=== PATIENT | female | born 1985 | race African-American/Black ===

== ENCOUNTER 2020-05-26 13:33 | Inpatient (IN) | payer OTHER ==
[~2020-05-26] VITALS: Ht 172.7 cm; Wt 115.7 kg
[2020-05-26] VITALS (27 sets, daily range): BP systolic 132–191; BP diastolic 70–97
[2020-05-26] MEDS ORDERED: LR 1,000 ML IV SCH ×2 (13:35→16:30)
[2020-05-26] MEDS ORDERED: LACTATED RINGER'S 1000 ML IV STA (13:35)
[2020-05-26] MEDS ORDERED: LABETALOL 100MG/20ML VIAL IV STA ×3 (13:41→17:53)
[2020-05-26] MEDS ORDERED: NIFEdipine 10 MG CAP PO ONE (13:45)
[2020-05-26] MEDS ORDERED: BICITRA 30ML SOLN UDC PO ONE (13:45)
[2020-05-26] MEDS ORDERED: ceFAZolin SOD 2 GM in IV 1 EA IV ONE (13:45)
[2020-05-26 14:08] LABS: HEMATOCRIT 35.4 % (36.0-47.0); HEMOGLOBIN 10.6 g/dl (12.0-15.5); MEAN CORPUSCULAR HEMOGLOBIN 22.5 pg (27.0-33.0); MEAN CORPUSCULAR HGB CONC 29.9 g/dl (32.0-36.5); MEAN CORPUSCULAR VOLUME 75.2 fl (80.0-96.0); PLATELET COUNT, AUTOMATED 391 10^3/uL (150-450); RED BLOOD COUNT 4.71 10^6/uL (4.00-5.40); WHITE BLOOD COUNT 10.2 10^3/uL (4.0-10.0)
[2020-05-26] MEDS ORDERED: ONDANSETRON 4MG/2ML VIAL IV PRN ×3 (14:12→16:30)
[2020-05-26] MEDS ORDERED: METOCLOPRAMIDE INJ 10MG/2ML VIAL (J2765 PER 1) IV PRN ×2 (14:12→16:30)
[2020-05-26] MEDS ORDERED: NALBUPHINE HCL 10 MG/ML AMP (J2300) IV PRN (14:12)
[2020-05-26] MEDS ORDERED: NALOXONE INJ 0.4MG/1ML VIAL (J2310 PER 1MG) IV PRN ×2 (14:12)
[2020-05-26] MEDS ORDERED: diphenhydrAMINE 50MG/ML VIAL (J1200) IV PRN (14:12)
[2020-05-26] MEDS ORDERED: PHENYLephrine 500MCG 5ML (100MCG/ML) SYRINGE As Ordered ONE (14:31)
[2020-05-26] MEDS ORDERED: MORPHINE PRES-FREE INJ 10 MG/10 ML VIAL (J2274) As Ordered ONE (14:31)
[2020-05-26] MEDS ORDERED: OXYTOCIN 30 UNITS IN 0.9% NaCl 500ML IV BAG (J2590) As Ordered ONE (14:31)
[2020-05-26] MEDS ORDERED: ONDANSETRON 4MG/2ML VIAL As Ordered ONE ×2 (14:31→16:28)
[2020-05-26] MEDS ORDERED: ePHEDrine SULFATE 25 MG/5 ML(5MG/ML) SYRINGE As Ordered ONE (14:31)
[2020-05-26] MEDS ORDERED: KETOROLAC 60MG 2ML VIAL As Ordered ONE (14:32)
[2020-05-26 14:56] LABS: CORD GAS ABE V -5.9; CORD GAS HCO3 V 22.1 MEQ/L; CORD GAS O2 SAT V 69.9 %; CORD GAS PCO2 V 52.3 mmHg; CORD GAS PH V 7.244 UNITS; CORD GAS PO2 V 31.9 mmHg; CORD GAS TCO2 V 23.7 MEQ/L
[2020-05-26 14:57] LABS: CORD GAS ABE A -5.2; CORD GAS HCO3 A 27.7 MEQ/L; CORD GAS O2 SAT A 26.3 %; CORD GAS PCO2 A 90.8 mmHg; CORD GAS PH A 7.102 UNITS; CORD GAS PO2 A 17.9 mmHg; CORD GAS SBC A 18.4 MEQ/L; CORD GAS TCO2 A 30.5 MEQ/L
[2020-05-26] MEDS ORDERED: OXYTOCIN INJ 10 UNITS/ML VIAL (J2590) As Ordered ONE (15:04)
--- NOTE | 2020-05-26 15:05 | HPEPDOC ---
Obstetrical History & Physical General Date of Admission May 26, 2020 at 13:35 Primary Care Physician: SATYA TALAVERA CNM History of Present Illness Micaela is a 34 y/o at 38.1 weeks, ROCKY 06/08/20 per 1st trimester ultrasound in [place], [place] at [facility], awaiting records at this time. LMP 09/02/19. She moved here from [place] 3 weeks ago. Has not had care since 02/2020 She presented to L&D via ambulance with a C/O constant abdominal pain that stretches to her back, cramping, and rating it 10/10 on adult pain scale. She has had abdominal pain with contractions for the last 3 days but her pain started to get worse suddenly this afternoon when she was doing laundry. Reports SOB with onset of pain. Denies LOF, vaginal bleeding. Reports active movement today. Reports current headache. Denies chest pain, nausea/vomiting, visual changes. History significant for chronic hypertension with superimposed preeclampsia and gestational diabetes A2 this . Reports taking Labetalol 200mg BID, last taken this morning and Metformin 500mg PO HS, taken last night. Last meal was last night, patient unsure of last fluid intake. Chief Complaint: Contractions, term, Other (Severe abdominal pain, hx. of C/Section x8) Information Provided By: Patient Age: 34 : 9 Term: 8 Pre-term: 0 Abortions: 0 Livin Care Care: Other (Last visit 02/21/20 per records received from [facility] ([facility] in [place]) Dating Final EDC: Jun 08, 2020 Final EDC by: 1st trimester (US) (awaiting records from [place]) LMP: Sep 02, 2019 1st Trimester Date: October 11, 2019 Weeks + Days: 5.5 EGA at Admission: 38.1 Antepartum Course Diagnos(e)s Pre-gestational Type 2 Diabetes, taking Metformin Chronic Hypertension with Superimposed Preeclampsia, diagnosed at 20wks this , taking Labetalol 200mg BID, last taken this AM. Height (inches): 68 Past Medical History Past Obstetrical History #1: Past Obstetrical History: Primgravida Date of Delivery: Jul 20, 2007 Type of Delivery: Spontaneous Vaginal Del. Sex of Infant: Female (6lb 3.4oz) Past Obstetrical History #2: Past Obstetrical History: Multigravida Date of Delivery: Jul 17, 2008 Type of Delivery: Spontaneous Vaginal Del. Sex of : Female (7lb8.96oz) Past Obstetrical History #3: Past Obstetrical History: Multigravida Date of Delivery: Aug 13, 2009 Type of Delivery: Ceserean section Sex of Infant: Male (6lb 12.96oz.) Complications: Yes (Preeclampsia) Past Obstetrical History #4: Past Obstetrical History: Multigravida Date of Delivery: Dec 07, 2010 Type of Delivery: Ceserean section Sex of : Female (9lbs) Past Obstetrical History #5: Past Obstetrical History: Multigravida Date of Delivery: Jun 05, 2013 Type of Delivery: Ceserean section Sex of : Male (8lb 4.96oz.) Complications: Yes (Preeclampsia; GDMA2) Past Obstetrical History #6: Past Obstetrical History: Multigravida Date of Delivery: Mar 19, 2015 Type of Delivery: Ceserean section Sex of : Male (6lb 13oz.) Complications: Yes (Preeclampsia) Past Obstetrical History #7: Past Obstetrical History: Multigravida Date of Delivery: Aug 27, 2017 Type of Delivery: Ceserean section Sex of Infant: Male (36.5wks) Complications: Yes (Chronic HTN with Superimposed Preeclampsia) Past Obstetrical History #8: Past Obstetrical History: Multigravida Date of Delivery: May 03, 2019 Type of Delivery: Ceserean section Sex of Infant: Female (8lb 13oz.) Complications: Yes (Chronic HTN with Superimposed Preeclampsia with severe features) 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 (Last PAP 11/14/19 normal, HPV negative) Past Medical History Medical History Chronic Hypertension Iron Deficiency Anemia Pregestational diabetes Surgical History: section (x6, 2009, 2010, 2013, 2014, 2017, 2018) Family History Significant Family History: Diabetes, Hypertension Social History Marital Status: Single Family situation: Spouse/partner home (Partner's Name: Joel Burkett) Psychosocial History: No pertinent psych hx * Smoker: non-smoker Alcohol: Denies Drugs: denies Imunizations Tdap status: current (01/13/2015) Allergies Coded Allergies: No Known Drug Allergies (Verified Allergy, Unknown, 05/26/20) Medications Scheduled Aspirin (Aspirin) 81 Mg Tab.chew, 81 MG PO DAILY for pain Labetalol HCl (Labetalol HCl) 200 Mg Tablet, 200 MG PO BID Magnesium Oxide (Magnesium) 400 Mg Capsule, 400 MG PO DAILY for constipation Metformin HCl (Metformin HCl) 500 Mg Tablet, 500 MG PO DAILY No.137/Iron/Folic Acd ( Vitamin Tablet) 1 Each Tablet, 1 TAB PO DAILY Physical Examination Physical Examination GENERAL: Alert and oriented times three. ABDOMEN: Gravid and very tender to touch. FETUS: Is vertex (VTX) by sterile vaginal examination (SVE), fetus is transverse oblique by bedside U/S. LUNGS: Clear to auscultation (CTA) bilaterally. EXTREMITIES: Mild non pitting edema bilaterally. No clonus. Deep tendon reflexes (DTRs) + 1. BEDSIDE ULTRASOUND: Oblique transverse lie with head in right lower maternal quadrant.Placenta posterior. Vital Signs/I&O Vital Signs Date Time Temp Pulse Resp B/P (MAP) Pulse Ox O2 Delivery O2 Flow Rate FiO2 05/26/20 13:49 92 191/97 Pertinent Laboratoy Data Blood Type: A+ RBC Antibody Screen: Negative HIV: Negative Hepatitis B: Negative Hepatitis C: Negative Rapid Plasma Reagin: Nonreactive Rubella: Immune Varicella: Immune Chlamydia/Gonorrhea: Negative Diag/Inter Therapy 02/04/20 HgA1C 7.2% 12/01/19 [id number] Negative 12/01/2019 First Screen, nuchal translucency 0.99MoM, negative screening Panel done on 02/06/2020: Hgb Electropheresis AA, SMA carrier screen negaive, alpha thalassemia carrier sceen negative, raj-A negative, CMP creatnine 0.49, AST 10, ALT7 Other Ultrasounds 01/25/20 - Anatomy at 20wks Normal, upper extremities and RVOT not well visualized 02/15/20 - Anatomy at 25.4wks, normal except limited views of heart and spine 03/03/20 - Echo, Normal findings Steroid Therapy Steroid Therapy: No Vaginal Examination Dilation: 1cm Effacement: 80% Station: -3 Cervical Consistency: Soft Cervical Position: Posterior Presentation: Transverse presentation (Oblique transverse lie ) Assessment Heart Rate (FHR): 160 Variability: Moderate Accelerations: None Decelerations: Variable Tocometer Contractions: Yes Frequency: regular, other (3-6 min.) Duration: greater than 60 seconds Strength: palpated as mild/moderate Multi-drug resistant Organism: No history of MDRO Assessment/Plan Assessment IUP at 38.1 weeks Grand multiparity History of C/Section x6 Category 2 FHT Chronic Hypertension with superimposed preeclampsia with severe features Pre-gestational Type 2 Diabetes, taking Metformin Advanced Maternal Age Sever abdominal pain, possible placental abruption versus uterine rupture Plan Per consultation with Dr. Singh. Admit and orient to Labor and Delivery. Diet: NPO. Group B Streptococcus (GBS) unknown. Labs and intravenous (IV) per unit protocol. Preeclampsia Profile Type and Cross 2 units for high risk Hemorrhage Nifedipine 10mg PO x1 STAT Labetalol 20mg IVP x1 STAT Counseled on Section. Lactated Ringers (LR): Bolus 1000mL Anesthesia and neonatology notified. Ancef 2 grams ordered via IV now. Prep for STAT Repeat Section. SATYA TALAVERA CNM May 26, 2020 14:15
[2020-05-26 15:16] LABS: ALT/SGPT 20 U/L (12-78); BILIRUBIN,TOTAL 0.3 MG/DL (0.2-1.0); CREATININE FOR GFR 0.54 MG/DL (0.55-1.30); GLOMERULAR FILTRATION RATE > 60.0 (>60); LDH LACTATE DEHYDROGENASE 227 U/L (84-246); URIC ACID 4.6 MG/DL (2.6-6.0)
[2020-05-26] MEDS: LR 1,000 ML IV SCH ×2 (15:48→23:48)
[2020-05-26] MEDS ORDERED: OXYTOCIN DRIP 30 UNITS in IV 1 EA IV SCH (15:48)
[2020-05-26] MEDS ORDERED: RHOGAM 300 MCG (1500 IU) INJ (J2790) IM SCH (16:00)
[2020-05-26] MEDS ORDERED: ANUSOL HC CREAM 30GM TOP PRN (16:00)
[2020-05-26] MEDS ORDERED: MOM 30ML SUSPENSION UDC PO PRN (16:00)
[2020-05-26] MEDS ORDERED: DOCUSATE SODIUM 100MG CAPSULE PO PRN (16:00)
[2020-05-26] MEDS ORDERED: MEASLES,MUMPS,RUBELLA VACCINE INJ (MMR-II) (90707) SC SCH (16:00)
[2020-05-26] MEDS ORDERED: MAGNESIUM *L&D* 4GM/100ML BAG (40MG/ML) As Ordered ONE (16:12)
[2020-05-26] MEDS ORDERED: MAGNESIUM *L&D* 4GM/100ML BAG (40MG/ML) IV ONE (16:15)
--- NOTE | 2020-05-26 16:28 | RO ---
OPERATIVE NOTE DATE OF OPERATION: 05/26/2020 INDICATIONS FOR PROCEDURE: Mariella is a 34-year-old female 9, para 8, with a history of six prior sections, who presented at 38 and 1/7 weeks gestation with severe abdominal pain x2 days. Upon evaluation, she was found to be in early labor with significant abdominal tenderness and rigidity. At this point, the decision was made to proceed with delivery via a section. PREOPERATIVE DIAGNOSES: 1. Intrauterine at 38 and 1/7 weeks gestation with a history of six prior sections. 2. Acute abdominal and pelvic pain; cannot rule out uterine abruption versus placental abruption. 3. Chronic hypertension; cannot rule out superimposed preeclampsia. 4. Type 2 diabetes. POSTOPERATIVE DIAGNOSES: 1. Intrauterine at 38 and 1/7 weeks gestation with a history of six prior sections. 2. Acute abdominal and pelvic pain; cannot rule out uterine abruptions versus placental abruption. 3. Chronic hypertension; cannot rule out superimposed preeclampsia. 4. Type 2 diabetes. 5. Complete uterine rupture with the in the abdominal cavity in breech presentation. 6. Dense omental and pelvic adhesions. PROCEDURES: 1. Repeat section. 2. Revision of old scar. 3. Delivery via breech extraction. 4. Extensive lysis of adhesions. 5. Bilateral salpingectomy. ANESTHESIA: Spinal. SURGEON: Messi Singh D.O. MEDICAL OFFICER PSYCHIATRY: Hemalatha Ledesma CNM COMPLICATIONS: None. ESTIMATED BLOOD LOSS: 700 mL. FINDINGS: Complete uterine rupture with a male infant in breech position in the abdominal cavity with clear amniotic fluid noted. 5 and 9. weight 9 pounds 8 ounces. Placenta removed manually. Normal appearing tube and ovaries. Cinda omental and pelvic adhesion. DESCRIPTION OF PROCEDURE: After obtaining informed consent, the patient was taken to the operating room where spinal anesthetic was found to be adequate. She was then prepped and draped in the usual sterile fashion in the supine position. At this point, an elliptical incision was made. With the help of Hemalatha Ledesma, the incision was carried down to the fascia. The fascia was incised in a midline fashion and carried through laterally. Superior aspect of the fascia was then grasped with the Mode clamp, tented off, and dissected off the rectus muscle sharply. Using a series of blunt and sharp dissection, the inferior aspect was dissected in a similar fashion. At this point, the abdominal cavity was entered. Upon entering the abdominal cavity clear amniotic fluid was noted with the infant found to be in the abdominal cavity essentially outside the uterus. We then delivered the via breech extraction. The nose and mouth was bulb suctioned. Cord clamped and cut. The infant was then handed over to the waiting sweep press operator. Cord blood and cord gas were sent. The placenta was then removed. Attention was turned to the uterus where the lower uterine segment was essentially nonexistent. At this point with careful closing, we were able to close the uterus in two separate layers of 0-Vicryl suture. The patient was counseled extensively prior and during the surgery given the nature of her uterine rupture and the fact that this was the seventh section. Both her and her partner agreed to proceed with a tubal ligation. At this point, both tubes were identified. Two large Kellys' were placed. The tubes were removed entirely and the mesosalpinx was then closed using 3-0 Chromic suture. The opposite side was done in a similar fashion. Pelvis copiously irrigated with normal saline and suctioned out. Attention turned to the omental and pelvic adhesions, which were taken down using a series of sharp and blunt dissection with the Bovee. After removing the adhesions, the peritoneum was closed in a running fashion using 2-0 Vicryl. The fascia was closed in without separate segments of 0-Vicryl sutures. All superficial bleeders were coagulated and the skin was reapproximated in a subcuticular fashion using 3-0 Vicryl and a Jos. Steri-Strips placed. The patient tolerated the procedure well. She was then transferred to the recovery room in stable condition. JANIA
[2020-05-26] MEDS ORDERED: dexameTHASONE 4 MG/ML 1ML VIAL (J1100 PER 1MG) IV PRN (16:30)
[2020-05-26] MEDS ORDERED: PERCOCET 5MG/325MG TAB PO PRN (16:30)
[2020-05-26] MEDS ORDERED: MAGNESIUM SULFATE 4% INJ 20GM/500ML (40MG/ML) As Ordered ONE (16:37)
[2020-05-26] MEDS: MAG Sulf (OBGYN) 20GM/500ML 20,000 MG in IV 1 EA IV SCH (16:41)
[2020-05-26] MEDS ORDERED: LABE200T32 PO (16:44)
[2020-05-26] MEDS ORDERED: MAGN400C2 PO (16:44)
[2020-05-26] MEDS ORDERED: ASPI81CH33 PO (16:44)
[2020-05-26] MEDS ORDERED: METF500T13 PO (16:46)
[2020-05-26] MEDS ORDERED: PRENTAB9 PO (16:47)
[2020-05-26] MEDS ORDERED: fentaNYL 100 MCG/2 ML INJECTION (J3010) As Ordered ONE (16:59)
[2020-05-26] MEDS: fentaNYL 100 MCG/2 ML INJECTION (J3010) IV PRN ×4 (17:03→17:45)
[2020-05-26] MEDS ORDERED: LABETALOL 100MG/20ML VIAL As Ordered ONE (17:15)
[2020-05-26] MEDS: metFORMIN (GLUCOPHAGE) 500 MG TAB PO SCH (18:09)
[2020-05-26] MEDS: LABETALOL 200 MG TAB PO SCH (20:33)
[2020-05-26] MEDS: KETOROLAC 30 MG/ML 1ML VIAL IV SCH (20:34)
[2020-05-27] VITALS (23 sets, daily range): BP systolic 105–154; BP diastolic 58–78
[2020-05-27] MEDS: MAG Sulf (OBGYN) 20GM/500ML 20,000 MG in IV 1 EA IV SCH ×2 (02:47→12:30)
[2020-05-27] MEDS: KETOROLAC 30 MG/ML 1ML VIAL IV SCH ×2 (02:48→08:39)
--- NOTE | 2020-05-27 07:25 | IPNPDOC ---
Progress Note Date of Service: May 27, 2020 Day#: 1 Progress Note SUBJECT: Mariella is a 34-year-old 9 now Para 8-1-0-9 status postoperative Section with BTL following a uterine rupture at 38-1/7 weeks', doing well day # 1. She currently has a dover catheter and limited mobility due to Magnesium Sulfate infusion. Magnesium was started at 1613 on 05/26/20. She is moving around in bed frequently, has sequential compression on bilateral lower legs. Reports lochia is like a normal period. Pain well controlled on IV Toradol. Passing flatus and tolerating a regular diet without issue. Reports headache is improving. Denies nausea/vomiting, epigastric pain, visual changes. OBJECTIVE: VITAL SIGNS: Afebrile, no severe range BPs, see below. Alert and oriented times three. Respiratory: Regular rate, no accessory muscle use, Lungs clear to auscultation bilaterally throughout. Heart rate: Regular rate and rhythm, no murmurs, rubs or gallops. Abdomen: Fundus firm at U-2. Soft, NTTP. Extremities: +1 pitting edema bilaterally to knees, DTRs +1, negative clonus, negative calf tenderness. Minimal lochia. ASSESSMENT: Postoperative Day #1, Chronic Hypertension with Superimposed Preeclampsia, Pre-gestational Type 2 Diabetes PLAN: 1. Discontinue Magnesium and dover catheter at 1613 today. 2. Percocet and Motrin for pain. 3. Encourage ambulation post Magnesium infusion. 4. Continue Metformin 500mg PO BID 5. Continue Labetalol 200mg PO BID 6. Continue Fasting and 2hr postprandial finger sticks 7. Regular Diet 8. Remove dressing at 24hrs postoperative 9. May shower after dressing removed. 10. Nursing care per policy. VS, I&O, 24H, Fishbone Vital Signs/I&O Vital Signs Date Time Temp Pulse Resp B/P (MAP) Pulse Ox O2 Delivery O2 Flow Rate FiO2 05/27/20 06:26 97.3 91 18 144/73 (96) 96 Room Air 05/26/20 22:36 2.0 Item Value Date Time Bedside Glucose (Misc Panel) 125 MG/DL H 05/27/20 0601 Oxygen Delivery Method Room Air 05/27/20 0626 Oxygen Delivery Method Room Air 05/27/20 0538 Oxygen Delivery Method Room Air 05/27/20 0439 Oxygen Delivery Method Room Air 05/27/20 0426 Oxygen Delivery Method Room Air 05/27/20 0343 Vital Signs Label Value Date Time Blood Pressure Assessment 135/77 (96) 05/27/20 0343 Source Automatic Cuff (NIBP) Blood Pressure Assessment 135/77 (96) 05/27/20 0426 Blood Pressure Assessment 135/77 (96) 05/27/20 0439 Source Automatic Cuff (NIBP) Blood Pressure Assessment 134/64 (87) 05/27/20 0538 Source Automatic Cuff (NIBP) Blood Pressure Assessment 144/73 (96) 05/27/20 0626 Source Automatic Cuff (NIBP) Patient Temperature 97.3 degrees F 05/27/20 0626 Temperature Source Temporal 05/27/20 06 Patient Temperature 97.9 degrees F 05/27/20 0538 Temperature Source Temporal 05/27/20 0538 Patient Temperature 97.0 degrees F 05/27/20 0439 Temperature Source Temporal 05/27/20 0439 Patient Temperature 97.0 degrees F 05/27/20 0426 Temperature Source Temporal 05/27/20 0426 Patient Temperature 97.3 degrees F 05/27/20 0343 Temperature Source Temporal 05/27/20 0343 Pulse 83 05/27/20 034 Pulse 83 05/27/20 0426 Pulse 83 05/27/20 0439 Pulse 84 05/27/20 0538 Pulse 84 05/27/20 0538 Pulse 91 05/27/20 0626 Pulse 91 05/27/20 0626 Respiratory Rate 18 bpm 05/27/20 0538 Respiratory Rate 18 bpm 05/27/20 0626 Respiratory Rate 17 bpm 05/27/20 0426 Bedside Pulse Oximetry 97 % 05/27/20 0343 Bedside Pulse Oximetry 97 % 05/27/20 0426 Bedside Pulse Oximetry 97 % 05/27/20 0439 Bedside Pulse Oximetry 97 % 05/27/20 0538 Bedside Pulse Oximetry 96 % 05/27/20 0626 I&O- Last 24 Hours up to 6 AM 05/27/20 06:00 Intake Total 530 ml Output Total 1473 ml Balance -943 ml Laboratory Data 24H LABS Laboratory Tests 2 05/26/20 13:52: Nucleated Red Blood Cells % (auto) 0.0, Glomerular Filtration Rate > 60.0, Uric Acid 4.6, Total Bilirubin 0.3, Aspartate Amino Transf (AST/SGOT) 17, Alanine Aminotransferase (ALT/SGPT) 20, Lactate Dehydrogenase 227, Syphilis Serology NONREACTIVE, Coronavirus (COVID-19)(PCR) NEGATIVE 05/26/20 14:42: Cord Arterial Blood pH 7.102, Cord Arterial Blood PCO2 90.8, Cord Arterial Blood PO2 17.9, Cord Arterial Blood HCO3 27.7, Cord Arterial Blood Total CO2 30.5, Cord Arterial Blood Base Excess -5.2, Cord Arterial Base Excess (Standard 18.4, Cord Arterial Bld Oxygen Saturation 26.3, Cord Venous Blood pH 7.244, Cord Venous Blood PCO2 52.3, Cord Venous Blood PO2 31.9, Cord Venous Blood HCO3 22.1, Cord Venous Blood Total CO2 23.7, Cord Venous Base Excess (Actual) -5.9, Cord Venous Base Excess (Standard) 19.0, Cord Venous Blood Oxygen Saturation 69.9 05/26/20 20:47: Bedside Glucose (Misc Panel) 141H 05/27/20 06:01: Bedside Glucose (Misc Panel) 125H 05/27/20 06:45: Serology Scanned Report Hepatitis B Testing CBC/BMP Laboratory Tests 05/26/20 13:52 SATYA TALAVERA CNM May 27, 2020 07:25
[2020-05-27] MEDS: LABETALOL 200 MG TAB PO SCH ×2 (08:38→20:43)
[2020-05-27] MEDS: metFORMIN (GLUCOPHAGE) 500 MG TAB PO SCH ×2 (08:38→18:00)
[2020-05-27] MEDS: PRENATAL VITAMINS CHEWABLE TABLET PO SCH (08:38)
[2020-05-27] MEDS: LR 1,000 ML IV SCH (08:46)
[2020-05-27 09:30] LABS: HIV 1&2 SCREEN CENTAUR NEGATIVE (NEGATIVE)
[2020-05-27 10:11] LABS: HEMATOCRIT 26.3 % (36.0-47.0); HEMOGLOBIN 7.5 g/dl (12.0-15.5); MEAN CORPUSCULAR HEMOGLOBIN 22.2 pg (27.0-33.0); MEAN CORPUSCULAR HGB CONC 28.5 g/dl (32.0-36.5); MEAN CORPUSCULAR VOLUME 77.8 fl (80.0-96.0); PLATELET COUNT, AUTOMATED 272 10^3/uL (150-450); RED BLOOD COUNT 3.38 10^6/uL (4.00-5.40); WHITE BLOOD COUNT 13.4 10^3/uL (4.0-10.0)
[2020-05-27] MEDS: PERCOCET 5MG/325MG TAB PO PRN (12:30)
[2020-05-27] MEDS ORDERED: SLF 3 ML SYR IV PRN (16:15)
[2020-05-27] MEDS: IBUPROFEN 800 MG TAB PO SCH (17:49)
[2020-05-27] MEDS: SLF 3 ML SYR IV SCH (21:17)
[2020-05-28] VITALS (8 sets, daily range): BP systolic 142–181; BP diastolic 74–94
[2020-05-28] MEDS: IBUPROFEN 800 MG TAB PO SCH ×3 (00:31→17:28)
[2020-05-28] MEDS: PERCOCET 5MG/325MG TAB PO PRN ×4 (02:11→20:43)
[2020-05-28] MEDS: SLF 3 ML SYR IV SCH ×3 (05:49→20:43)
--- NOTE | 2020-05-28 06:37 | IPNPDOC ---
Progress Note Date of Service: May 28, 2020 Day#: 2 Progress Note SUBJECT: Doing well without complaints. Ambulating, voiding and pain is moderately-controlled. Has not taken her Percocet as often as she could. Reports minimal lochia. OBJECTIVE: VITAL SIGNS: Mildly elevated blood pressures, afebrile. Alert and oriented times three. Abdomen: Fundus firm at U-2. Soft, NTTP. Incision: Clean dry and intact well approximated nonerythematous Steri-Strips in place Ext: neg calf tenderness. ASSESSMENT: /postoperative day #2 status post delivery. Recovering in stable condition. PLAN: 1. Continue routine /postoperative care 2. Discharge plans for tomorrow 3. Repeat CBC. We'll increase her labetalol to 300 mg twice a day VS, I&O, 24H, Fishbone Vital Signs/I&O Vital Signs Date Time Temp Pulse Resp B/P (MAP) Pulse Ox O2 Delivery O2 Flow Rate FiO2 05/28/20 06:20 158/81 (106) 05/28/20 06:19 97.4 94 16 05/27/20 20:48 97 Room Air 05/26/20 22:36 2.0 I&O- Last 24 Hours up to 6 AM 05/28/20 06:00 Output Total 855 ml Balance -855 ml Laboratory Data 24H LABS Laboratory Tests 2 05/27/20 06:45: Serology Scanned Report Hepatitis B Testing 05/27/20 09:18: Nucleated Red Blood Cells % (auto) 0.0 05/27/20 16:06: Bedside Glucose (Misc Panel) 124H 05/27/20 20:46: Bedside Glucose (Misc Panel) 82 05/28/20 06:00: Bedside Glucose (Misc Panel) 87 CBC/BMP Laboratory Tests 05/27/20 09:18 LISETTE CASTORENA MD. May 28, 2020 06:37
[2020-05-28 08:21] LABS: HEMATOCRIT 26.5 % (36.0-47.0); HEMOGLOBIN 7.5 g/dl (12.0-15.5); MEAN CORPUSCULAR HEMOGLOBIN 22.3 pg (27.0-33.0); MEAN CORPUSCULAR HGB CONC 28.3 g/dl (32.0-36.5); MEAN CORPUSCULAR VOLUME 78.9 fl (80.0-96.0); PLATELET COUNT, AUTOMATED 307 10^3/uL (150-450); RED BLOOD COUNT 3.36 10^6/uL (4.00-5.40); WHITE BLOOD COUNT 13.4 10^3/uL (4.0-10.0)
[2020-05-28] MEDS: PRENATAL VITAMINS CHEWABLE TABLET PO SCH (08:22)
[2020-05-28] MEDS: metFORMIN (GLUCOPHAGE) 500 MG TAB PO SCH ×2 (08:25→17:27)
[2020-05-28] MEDS ORDERED: LABETALOL 100 MG TAB PO SCH (09:00)
[2020-05-28] MEDS: SERTRALINE HCL 25 MG TABLET PO SCH (11:42)
[2020-05-28] MEDS: LABETALOL 200 MG TAB PO SCH (20:42)
[2020-05-29] VITALS (10 sets, daily range): BP systolic 152–179; BP diastolic 70–92
[2020-05-29] MEDS: IBUPROFEN 800 MG TAB PO SCH ×3 (00:34→17:00)
[2020-05-29] MEDS: SLF 3 ML SYR IV SCH ×3 (05:20→20:51)
[2020-05-29] MEDS: PERCOCET 5MG/325MG TAB PO PRN ×2 (05:20→16:15)
[2020-05-29] MEDS ORDERED: SIMETHICONE 80 MG CHEW TAB PO PRN (07:15)
[2020-05-29] MEDS: PRENATAL VITAMINS CHEWABLE TABLET PO SCH (08:12)
[2020-05-29] MEDS: metFORMIN (GLUCOPHAGE) 500 MG TAB PO SCH ×2 (08:12→17:34)
[2020-05-29] MEDS: SERTRALINE HCL 25 MG TABLET PO SCH (08:13)
[2020-05-29] MEDS: LABETALOL 200 MG TAB PO SCH (08:20)
[2020-05-29] MEDS ORDERED: hydrALAZINE 20MG/ML 1ML VIAL (J0360 PER 20MG) IV STA (09:43)
[2020-05-29 10:26] LABS: HEMATOCRIT 24.7 % (36.0-47.0); MEAN CORPUSCULAR HEMOGLOBIN 22.3 pg (27.0-33.0); MEAN CORPUSCULAR HGB CONC 28.3 g/dl (32.0-36.5); MEAN CORPUSCULAR VOLUME 78.7 fl (80.0-96.0); PLATELET COUNT, AUTOMATED 312 10^3/uL (150-450); RED BLOOD COUNT 3.14 10^6/uL (4.00-5.40); WHITE BLOOD COUNT 8.5 10^3/uL (4.0-10.0)
[2020-05-29 10:51] LABS: ALBUMIN 1.7 GM/DL (3.2-5.2); ALT/SGPT 15 U/L (12-78); BILIRUBIN,TOTAL 0.2 MG/DL (0.2-1.0); BLOOD UREA NITROGEN 8 MG/DL (7-18); CALCIUM LEVEL 8.4 MG/DL (8.5-10.1); CARBON DIOXIDE LEVEL 27 MEQ/L (21-32); CHLORIDE LEVEL 107 MEQ/L (98-107); CREATININE FOR GFR 0.65 MG/DL (0.55-1.30); GLOMERULAR FILTRATION RATE > 60.0 (>60); GLUCOSE, FASTING 129 MG/DL (70-100); POTASSIUM SERUM 3.3 MEQ/L (3.5-5.1); SODIUM LEVEL 140 MEQ/L (136-145); TOTAL PROTEIN 6.3 GM/DL (6.4-8.2)
[2020-05-29] MEDS ORDERED: NIFEdipine 30 MG XL TAB PO SCH (11:00)
[2020-05-29] MEDS ORDERED: LABETALOL 200 MG TAB PO ONE (17:30)
[2020-05-29] MEDS ORDERED: LABETALOL 200 MG TAB PO SCH ×2 (21:00)
[2020-05-30] VITALS (17 sets, daily range): BP systolic 131–182; BP diastolic 59–96
[2020-05-30] MEDS: IBUPROFEN 800 MG TAB PO SCH ×3 (00:50→17:25)
--- NOTE | 2020-05-30 04:00 | IPNPDOC ---
Text Note Date of Service The patient was seen on 05/30/20. NOTE I consulted Hospitalist regarding consistently elevated bp's despite increasing labetalol to 600mg TID dosing with 30mg Nifedipine. She continues to have 150's/90's bp's. Yesterday she required a dose of 10mg IV hydralazine for a period of recurrent severe range bp's. She does not plan to breast feed. No sx of worsening pre-E, she already received 24hr MgSO4 post-delivery. Labs done earlier show normal creatinine and LFTs. Hgb 7 noted, stable from 7.5 previously. However, I will discuss possibility of blood transfusion with her later this morning for wound healing (she has been asymptomatic). VS,Fishbone, I+O VS, Fishbone, I+O Laboratory Tests 05/29/20 09:57 Vital Signs Date Time Temp Pulse Resp B/P (MAP) Pulse Ox O2 Delivery O2 Flow Rate FiO2 05/30/20 01:56 97.7 88 18 158/96 (116) 05/29/20 16:15 Room Air 05/27/20 20:48 97 05/26/20 22:36 2.0 Jessica Agustin MD May 30, 2020 04:00
[2020-05-30] MEDS: PERCOCET 5MG/325MG TAB PO PRN ×2 (04:16→21:58)
--- NOTE | 2020-05-30 04:28 | HPEPDOC ---
[facility] Medical History & Physical Date of Admission May 26, 2020 Date of Service: May 30, 2020 History and Physical CHIEF COMPLAINT: Consultation for Hypertension management HISTORY OF PRESENT ILLNESS: 34-year-old female post after . Patient had a uterine rupture requiring emergent . I Was consulted to help with management of patients hypertension. Patient is currently on labetalol which has been uptitrated and nifedipine patient remains hypertensive last blood pressure 158/96. Patient says she feels comfortable and denies any chest pain or palpitations denies headaches. Patient tells me that she is using hypertensive after delivery which has happened multiple times in the past but usually self resolves after a few weeks. PAST MEDICAL/SURGICAL HISTORY: Gestational Diabetes on metformin Gestational Hypertension Multiple C-sections SOCIAL HISTORY: Denies alcohol use Denies tobacco use Denies illicit drug use FAMILY HISTORY: Reviewed and none contributory to this admission ALLERGIES: Please see below. REVIEW OF SYSTEMS: 10 point review of systems complete all negative otherwise stated in HPI HOME MEDICATIONS: Please see below. PHYSICAL EXAMINATION: Constitutional: Awake and alert, in no apparent distress, obsese ENT: Sclera are clear. Mucosa is moist. Respiratory: Lungs CTA bilaterally. No respiratory distress. Cardiovascular: RRR S1 and S2 are normal, no murmur Gastrointestinal: Post surgical abdomen with steri strips in place Musculoskeletal: No lower extremity edema. Neurologic: No focal neurological deficit. Mental Status: A&O x3, normal affect Skin: Warm, dry, multiple tattoos LABORATORY DATA: See below. IMAGING: See chart MICROBIOLOGY: Please see below. ASSESSMENT/PLAN 34-year-old female post after . Patient had a uterine rupture requiring emergent . I Was consulted to help with management of patients hypertension. # Uncontrolled hypertension: Patient will not be breast-feeding and per my discussion with the obstetrics physician Dr. Agustin there is no contraindications to an anti-hypertensive drugs for this patient. I recommend down titrating the labetalol daily with the goal of taking the patient off of it I recommended continuing the nifedipine 30 mg daily for now. I recommend starting lisinopril 10 mg daily which may have to be uptitrated to 20 mg for better blood pressure control. I recommend also starting hydrochlorothiazide 12.5 mg daily which may also need to be uptitrated to 25 mg daily. Patient is new to [place] and does not have a primary care doctor I recommend that a PCP is established with the patient upon discharge will begin to assist with up/down titrating her antihypertensives. We will continue to follow to assist with blood pressure management # Diabetes: Hold metformin while inpatient. Patient should be on insulin sliding scale frequent Accu-Cheks and hypoglycemic precautions. Thank you for the opportunity to care for this patient. We will continue to follow. A Yousef Hospitalist Vital Signs Vital Signs Date Time Temp Pulse Resp B/P (MAP) Pulse Ox O2 Delivery O2 Flow Rate FiO2 05/30/20 01:56 97.7 88 18 158/96 (116) 05/29/20 16:15 Room Air 05/27/20 20:48 97 05/26/20 22:36 2.0 Laboratory Data Labs 24H Laboratory Tests 2 05/29/20 06:01: Bedside Glucose (Misc Panel) 94 05/29/20 09:57: Nucleated Red Blood Cells % (auto) 0.0, Anion Gap 6L, Glomerular Filtration Rate > 60.0, Calcium Level 8.4L, Total Bilirubin 0.2, Aspartate Amino Transf (AST/SGOT) 7, Alanine Aminotransferase (ALT/SGPT) 15, Alkaline Phosphatase 126H, Total Protein 6.3L, Albumin 1.7L, Albumin/Globulin Ratio 0.4L 05/29/20 10:46: Bedside Glucose (Misc Panel) 121H 05/29/20 16:06: Bedside Glucose (Misc Panel) 141H 05/29/20 20:54: Bedside Glucose (Misc Panel) 135H CBC/BMP Laboratory Tests 05/29/20 09:57 Home Medications Scheduled Aspirin (Aspirin) 81 Mg Tab.chew, 81 MG PO DAILY for pain Labetalol HCl (Labetalol HCl) 200 Mg Tablet, 200 MG PO BID Magnesium Oxide (Magnesium) 400 Mg Capsule, 400 MG PO DAILY for constipation Metformin HCl (Metformin HCl) 500 Mg Tablet, 500 MG PO DAILY No.137/Iron/Folic Acd ( Vitamin Tablet) 1 Each Tablet, 1 TAB PO DAILY Allergies Coded Allergies: No Known Drug Allergies (Verified Allergy, Unknown, 05/26/20) A-FIB/CHADSVASC A-FIB History Current/History of A-Fib/PAF?: No JESSICA JASON MD May 30, 2020 04:28
[2020-05-30] MEDS ORDERED: ACETAMINOPHEN 500 MG TAB PO ONE (05:15)
[2020-05-30] MEDS ORDERED: diphenhydrAMINE 50MG/ML VIAL (J1200) IV ONE (05:15)
--- NOTE | 2020-05-30 05:43 | IPNPDOC ---
Progress Note Date of Service: May 30, 2020 Day#: 4 Progress Note POD 4/PPD 4 SUBJECT: Mariella is a 34yo [id number] s/p emergent RLTCS with BTL for uterine rupture on 05/26, doing well overall post-op day 4. She has hx of CHTN, was on 200mg BID labetalol in , A2GDM and obesity. When she presented, she was diagnosed with superimposed pre-E with severe features based on systolic bp 190's. She received 24hr MgSO4 after delivery and since that time we have been titrating up on bp meds. Yesterday she required a dose of IV hydralazine for a period of severe range bp's. I titrated her up to 600mg TID labetalol with 30mg QD nifedipine yesterday. I repeated CMP which showed normal creatinine and LFTs, Hgb downtrended to 7 from 7.5. I consulted Dr. Wagner, hospitalist, for assi stance with bp meds going forward since she remains in the 150's/90's. She has been ambulating, voiding spontaneously without issue and tolerating regular diet. Bottle feeding per preference. Reports lochia is like a normal period. Pain well controlled on ibuprofen/percocet. She denies VINES/vision ch anges/RUQ pain. On questioning, she feels that she may be somewhat lightheaded with walking. OBJECTIVE: VITAL SIGNS: BP's 150's/90's, afebrile Alert and oriented times three. Abdomen: Fundus firm at U-2. Soft, appropriately tender to palpation. Pfannenstiel incision has steri strips overlying. No erythema/drainage/induration Extremities: 1+ edema of BLE to knees Labs: as noted in HPI ASSESSMENT: Mariella is a 34yo [id number] s/p emergent RLTCS with BTL for uterine rupture on 05/26, doing well overall post-op day 4. She has hx of CHTN, was on 200mg BID labetalol in , A2GDM and obesity. When she presented, she was diagnosed with superimposed pre-E with severe features based on systolic bp 190's. She received 24hr MgSO4 after delivery and since that time we have been titrating up on bp meds. Medicine consulted for assistance with bp meds. Hemodynamically stable overall, but Hgb is 7, and I discussed blood transfusion with her to enhance wound healing and overall feeling of well being. She is amenable. Blood transfusion consent was discussed and signed on admission. She has no evidence of infection. PLAN: 1. Transfuse 2u PRBCs with CBC 6hr after. Benadryl and tylenol prior. 2. Percocet and Motrin for pain. 3. I appreciate Medicine recommendations for adjustment to bp med regimen 4. Encourage ambulation and use of IS 5. Regular diet Jessica Agustin MD VS, I&O, 24H, [facility] Vital Signs/I&O Vital Signs Date Time Temp Pulse Resp B/P (MAP) Pulse Ox O2 Delivery O2 Flow Rate FiO2 05/30/20 04:16 16 05/30/20 01:56 97.7 88 158/96 (116) 05/29/20 16:15 Room Air 05/27/20 20:48 97 05/26/20 22:36 2.0 Laboratory Data 24H LABS Laboratory Tests 2 05/29/20 06:01: Bedside Glucose (Misc Panel) 94 05/29/20 09:57: Nucleated Red Blood Cells % (auto) 0.0, Anion Gap 6L, Glomerular Filtration Rate > 60.0, Calcium Level 8.4L, Total Bilirubin 0.2, Aspartate Amino Transf (AST/SGOT) 7, Alanine Aminotransferase (ALT/SGPT) 15, Alkaline Phosphatase 126H, Total Protein 6.3L, Albumin 1.7L, Albumin/Globulin Ratio 0.4L 05/29/20 10:46: Bedside Glucose (Misc Panel) 121H 05/29/20 16:06: Bedside Glucose (Misc Panel) 141H 05/29/20 20:54: Bedside Glucose (Misc Panel) 135H CBC/BMP Laboratory Tests 05/29/20 09:57 Jessica Agustin MD May 30, 2020 05:43
[2020-05-30] MEDS: SLF 3 ML SYR IV SCH ×3 (06:00→22:01)
[2020-05-30] MEDS: metFORMIN (GLUCOPHAGE) 500 MG TAB PO SCH ×2 (08:43→17:27)
[2020-05-30] MEDS ORDERED: NIFEdipine 30 MG XL TAB PO SCH (09:00)
[2020-05-30] MEDS ORDERED: lisinopriL 10 MG TAB PO SCH (09:00)
[2020-05-30] MEDS ORDERED: hydroCHLOROthiazide 12.5 MG CAPSULE PO SCH (09:00)
[2020-05-30] MEDS ORDERED: LABETALOL 200 MG TAB PO SCH (09:00)
[2020-05-30] MEDS: SERTRALINE HCL 25 MG TABLET PO SCH (09:36)
[2020-05-30] MEDS: PRENATAL VITAMINS CHEWABLE TABLET PO SCH (09:38)
[2020-05-30] MEDS ORDERED: PILL CUTTER 1 EACH XX PRN (09:45)
[2020-05-30] MEDS: **hydrALAZINE HCL** 25 MG TAB PO SCH ×2 (11:44→17:27)
[2020-05-30] MEDS ORDERED: FUROSEMIDE 40MG/4ML VIAL (J1940) IV ONE (12:00)
[2020-05-30] MEDS ORDERED: LABETALOL 100 MG TAB PO ONE (14:00)
[2020-05-30] MEDS: LABETALOL 100 MG TAB PO SCH ×2 (14:16→21:59)
--- NOTE | 2020-05-30 14:57 | IPNPDOC ---
Subjective Date Seen The patient was seen on 05/30/20. Subjective Chief Complaint/HPI Malachi feels well. DOes not offer any complaints this morning. Objective Physical Examination General Exam: Positive: Alert, Cooperative, No Acute Distress Eye Exam: Positive: PERRLA, Conjunctiva & lids normal, EOMI; Negative: Sclera icteric ENT Exam: Positive: Atraumatic, Mucous membr. moist/pink, Pharynx Normal Neck Exam: Positive: Supple; Negative: JVD, thyromegaly Chest Exam: Positive: Clear to auscultation, Normal air movement Heart Exam: Positive: Rate Normal, Regular Rhythm, Normal S1, Normal S2; Negative: Murmurs, Rubs Abdomen Exam: Positive: Normal bowel sounds, Soft, Tenderness Extremity Exam: Negative: Clubbing, Cyanosis, Edema Assessment /Plan Assessment 34-year-old female post after . Patient had a uterine rupture r equiring emergent . Hospitalist consulted for hypertension management. Hypertension increased labetelol to 300 mg q 8 hours Increased Nifedipine to 60 mg Started on Hydralazine 25 mg q6h. Will increase to 50 mg if Bp remains uncontrolled. Diabetes: On metformin Plan/VTE VTE Prophylaxis Ordered?: Yes VS, I&O, 24H, Fishbone Vital Signs/I&O Vital Signs Date Time Temp Pulse Resp B/P (MAP) Pulse Ox O2 Delivery O2 Flow Rate FiO2 05/30/20 13:50 97.5 84 20 142/75 Room Air 05/30/20 12:30 98 05/26/20 22:36 2.0 Laboratory Data 24H LABS Laboratory Tests 2 05/29/20 16:06: Bedside Glucose (Misc Panel) 141H 05/29/20 20:54: Bedside Glucose (Misc Panel) 135H 05/30/20 05:54: Bedside Glucose (Misc Panel) 92 05/30/20 09:35: Bedside Glucose (Misc Panel) 121H BALTAZAR JOHNSON MD May 30, 2020 14:57
[2020-05-30] MEDS ORDERED: LABETALOL 100 MG TAB PO SCH (21:00)
[2020-05-31] VITALS (10 sets, daily range): BP systolic 132–189; BP diastolic 65–98
[2020-05-31] MEDS: **hydrALAZINE HCL** 25 MG TAB PO SCH ×2 (00:06→06:00)
[2020-05-31] MEDS: IBUPROFEN 800 MG TAB PO SCH ×3 (01:41→18:58)
[2020-05-31] MEDS: LABETALOL 100 MG TAB PO SCH ×3 (06:00→22:14)
[2020-05-31] MEDS: SLF 3 ML SYR IV SCH ×3 (06:02→22:00)
[2020-05-31] MEDS: PERCOCET 5MG/325MG TAB PO PRN ×2 (06:15→20:06)
--- NOTE | 2020-05-31 07:26 | IPNPDOC ---
Text Note Date of Service The patient was seen on 05/31/20. NOTE Inpatient Subjective: Mariella is a 34 y/o s/p Repeat C/Section with BTL after uterine rupture, postoperative day #5. S/P blood transfusion on 05/30/20. Reports ambulating without difficulty, tolerating regular diet, voiding spontaneously, and having regular bowel movements. Reports minimal lochia, like a normal period. Reports intermittent headaches relived with medication. Denies chest pain, SOB, visual changes, nausea. Pain well controlled with Percocet and Motrin. Formula feeding . Objective: Vital Signs: Elevated BPs are being managed by Medicine Hospitalist, afebrile. General: Alert and oriented x3. Exophthalmus noted. Respiratory: Regular rate, no accessory muscle use. Abdomen: Soft, nontender. Mild distention. Incision well approximated, no edema, no redness, no drainage. Fundus firm, midline at U-1. Extremities: +1 pitting edema bilaterally to knees, negative calf tenderness. DTRs +1 bilaterally. Assessment: Postoperative Day #5, Chronic Hypertension being managed by [facility] Hospitalist Plan: 1. Collaboration with Medicine Hospitalist for BPs. 2. Continue blood pressure medication as per Medicine orders. 3. CBC and Thyroid panel this AM. 4. Encourage ambulation. 5. Percocet and Motrin as needed for pain. 6. Normal Nursing care. 7. Vital signs every 4 hours. VS,Fishbone, I+O VS, Fishbone, I+O Vital Signs Date Time Temp Pulse Resp B/P (MAP) Pulse Ox O2 Delivery O2 Flow Rate FiO2 05/31/20 06:15 18 Room Air 05/31/20 06:00 98.1 78 181/84 (116) 97 05/26/20 22:36 2.0 I&O- Last 24 Hours up to 6 AM 05/31/20 06:00 Intake Total 772 ml Balance 772 ml Lorena Carter CNM May 31, 2020 07:25
[2020-05-31 08:46] LABS: HEMATOCRIT 31.7 % (36.0-47.0); MEAN CORPUSCULAR HEMOGLOBIN 23.6 pg (27.0-33.0); MEAN CORPUSCULAR VOLUME 78.9 fl (80.0-96.0); PLATELET COUNT, AUTOMATED 459 10^3/uL (150-450); RED BLOOD COUNT 4.02 10^6/uL (4.00-5.40); WHITE BLOOD COUNT 8.6 10^3/uL (4.0-10.0)
[2020-05-31 09:05] LABS: HEMOGLOBIN 9.5 g/dl (12.0-15.5)
[2020-05-31 09:17] LABS: FREE THYROXINE INDEX 5.3 % (1.3-4.8); THYROID STIMULATING HORMONE 1.55 uIU/ML (0.358-3.740); THYROXINE (T4) 20.3 UG/DL (4.5-12.0)
[2020-05-31] MEDS: PRENATAL VITAMINS CHEWABLE TABLET PO SCH (09:51)
[2020-05-31] MEDS: NIFEdipine 30 MG XL TAB PO SCH (09:51)
[2020-05-31] MEDS: metFORMIN (GLUCOPHAGE) 500 MG TAB PO SCH ×2 (09:55→18:58)
[2020-05-31] MEDS: SERTRALINE HCL 25 MG TABLET PO SCH (10:01)
[2020-05-31] MEDS ORDERED: FUROSEMIDE 40MG/4ML VIAL (J1940) IV ONE (11:00)
[2020-05-31] MEDS: **hydrALAZINE** 50 MG TAB PO SCH ×3 (12:16→23:45)
--- NOTE | 2020-05-31 21:07 | IPNPDOC ---
Subjective Date Seen The patient was seen on 05/31/20. Subjective Chief Complaint/HPI No complains wants to go home. Objective Physical Examination General Exam: Positive: Alert, Cooperative, No Acute Distress Eye Exam: Positive: PERRLA, Conjunctiva & lids normal, EOMI; Negative: Sclera icteric ENT Exam: Positive: Atraumatic, Mucous membr. moist/pink, Pharynx Normal Neck Exam: Positive: Supple; Negative: JVD, thyromegaly Chest Exam: Positive: Clear to auscultation, Normal air movement Heart Exam: Positive: Rate Normal, Regular Rhythm, Normal S1, Normal S2; Negative: Murmurs, Rubs Abdomen Exam: Positive: Normal bowel sounds, Soft, Tenderness Extremity Exam: Negative: Clubbing, Cyanosis, Edema Assessment /Plan Assessment 34-year-old female post after . Patient had a uterine rupture requiring emergent . Hospitalist consulted for hypertension management. Hypertension increased nifedipine to 90mg this am. Hydralazine increased to 50 q6h to hold if SBP< 150 better controlled from this afternoon so labetelol reduced to 300 bid , to hold is SBP <140 Diabetes: On metformin Acute blood loss anemia improved after 2 units of PRBC. Plan/VTE VTE Prophylaxis Ordered?: Yes VS, I&O, 24H, Fishbone Vital Signs/I&O Vital Signs Date Time Temp Pulse Resp B/P (MAP) Pulse Ox O2 Delivery O2 Flow Rate FiO2 05/31/20 20:29 18 Room Air 05/31/20 17:54 97.8 88 132/65 (87) 96 05/26/20 22:36 2.0 I&O- Last 24 Hours up to 6 AM 05/31/20 07:00 Intake Total 772 ml Balance 772 ml Laboratory Data 24H LABS Laboratory Tests 2 05/30/20 21:54: Bedside Glucose (Misc Panel) 121H 05/31/20 06:19: Bedside Glucose (Misc Panel) 84 05/31/20 08:10: Nucleated Red Blood Cells % (auto) 0.0, Thyroid Stimulating Hormone (TSH) 1.550, Free Thyroxine Index 5.3H, Thyroxine (T4) 20.3H, Triiodothyronine (T3) Uptake 26L CBC/BMP Laboratory Tests 05/31/20 08:10 BALTAZAR JOHNSON MD May 31, 2020 21:07
[2020-05-31] MEDS ORDERED: ACETAMINOPHEN TAB 650MG DOSE (2X325MG) PO PRN (23:00)
[2020-06-01] MEDS ORDERED: **hydrALAZINE** 50 MG TAB PO ONE
[2020-06-01 00:45] VITALS: BP 156/74
[2020-06-01 02:00] VITALS: BP 142/71
[2020-06-01] MEDS: IBUPROFEN 800 MG TAB PO SCH ×2 (02:01→09:49)
[2020-06-01 06:00] VITALS: BP 145/93
[2020-06-01] MEDS: SLF 3 ML SYR IV SCH (06:00)
[2020-06-01] MEDS: LABETALOL 100 MG TAB PO SCH (06:05)
[2020-06-01] MEDS: **hydrALAZINE** 50 MG TAB PO SCH ×2 (06:05→13:24)
[2020-06-01] MEDS ORDERED: PERCOCET PO (09:01)
[2020-06-01] MEDS ORDERED: HYDR50TA PO (09:01)
[2020-06-01] MEDS ORDERED: SERT25TA21 PO (09:01)
[2020-06-01] MEDS ORDERED: LABE100T4 PO (09:01)
[2020-06-01] MEDS ORDERED: NIFE1TAB52 PO (09:01)
[2020-06-01] MEDS ORDERED: DOK1CAP7 PO (09:01)
[2020-06-01] MEDS: metFORMIN (GLUCOPHAGE) 500 MG TAB PO SCH (09:39)
[2020-06-01] MEDS: PRENATAL VITAMINS CHEWABLE TABLET PO SCH (09:40)
[2020-06-01] MEDS: NIFEdipine 30 MG XL TAB PO SCH (09:40)
[2020-06-01] MEDS: SERTRALINE HCL 25 MG TABLET PO SCH (09:40)
[2020-06-01] MEDS: PERCOCET 5MG/325MG TAB PO PRN (09:49)
[2020-06-01 10:05] VITALS: BP 143/69
--- NOTE | 2020-06-01 11:52 | IPNPDOC ---
Text Note Date of Service The patient was seen on 06/01/20. NOTE From Medical Stand point patient can be discharged. Suggested discharge Meds for Hypertension Nifedipine Xl 90 mg daily, Labetelol 3 00mg BID and hydralazine 50 mg TID . Hospitalist will sign off. Thank You for consulting us on this patient. VS,Fishbone, I+O VS, Fishbone, I+O Vital Signs Date Time Temp Pulse Resp B/P (MAP) Pulse Ox O2 Delivery O2 Flow Rate FiO2 06/01/20 10:05 98.0 72 20 143/69 (93) 06/01/20 06:00 99 Room Air 05/26/20 22:36 2.0 BALTAZAR JOHNSON MD Jun 01, 2020 11:52
--- NOTE | 2020-06-01 12:10 | DS.PDOC ---
Discharge Summary General Date of Admission May 26, 2020 at 13:35 Date of Discharge 06/01/20 Discharge Summary DATE OF ADMISSION: 05/26/20 DATE OF DISCHARGE: 06/01/20 ADMISSION DIAGNOSIS: 38+1 weeks, Grand Multipara, H/o prior cesareans, CHTN/pre- e, GDMA2, obesity, satisfied parity DISCHARGE DIAGNOSIS: Same as above; UTERINE RUPTURE noted at time of repeat DISCHARGE SUMMARY: The patient was admitted at 38+ weeks gestation with a diagnosis of CHTN/pre-e, GDMA2, at 38+2 weeks. She presented with severe abdominal pain, and given her gestational age, the decision was made to promptly perform a delivery. The section delivery was uncomplicated and included a bilateral tubal ligation. Her postoperative course was complicated by persistent hypertension. On postoperative day #6, her blood pressure was better controlled on the following regimen: Labetalol 300mg TID, Nifedipine ER 90mg qd, and Hydralazine 50mg QID. Sertraline and Metformin are also to be continued . She was meeting all discharge criteria on 06/01/20. PHYSICAL EXAMINATION ON DATE OF DISCHARGE: Mild HTN. Normal heart rate. Afebrile. HEART: Regular rate and rhythm. No murmurs, gallops, or rubs. LUNGS: Clear to auscultation bilaterally. ABDOMEN: Soft, nontender, nondistended. Incision bandage clean and dry. EXTREMITIES: Nonedematous, nontender. She was meeting all discharge criteria on postoperative day #6. We reviewed routine pre-eclampsia, fever, infectious, pain, and bleeding precautions. She is to followup with Dr. Singh within the week for BP and incision check. Vital Signs/I&Os Vital Signs Date Time Temp Pulse Resp B/P (MAP) Pulse Ox O2 Delivery O2 Flow Rate FiO2 06/01/20 10:05 98.0 72 20 143/69 (93) 06/01/20 06:00 99 Room Air 05/26/20 22:36 2.0 Laboratory Data Labs 24H Laboratory Tests 2 06/01/20 09:48: Bedside Glucose (Misc Panel) 110H FSBS Laboratory Tests Test 06/01/20 09:48 Range/Units Bedside Glucose (Misc Panel) 110 70-105 MG/DL Discharge Medications Scheduled Aspirin (Aspirin) 81 Mg Tab.chew, 81 MG PO DAILY for pain, (Reported) Hydralazine HCl (Hydralazine HCl) 50 Mg Tablet, 50 MG PO Q6H Labetalol HCl (Labetalol HCl) 100 Mg Tablet, 300 MG PO Q8H Metformin HCl (Metformin HCl) 500 Mg Tablet, 500 MG PO DAILY, (Reported) Nifedipine (Nifedipine ER) 30 Mg Tab.er.24, 90 MG PO DAILY No.137/Iron/Folic Acd ( Vitamin Tablet) 1 Each Tablet, 1 TAB PO DAILY, (Reported) Sertraline HCl (Sertraline HCl) 25 Mg Tablet, 25 MG PO DAILY Scheduled PRN Docusate Sodium (Dok) 100 Mg Capsule, 100 MG PO QHSP PRN for CONSTIPATION Oxycodone/Acetaminophen (Oxycodone-Acetaminophen 5-325) 1 Each Tablet, 1 TAB PO Q4H PRN for MILD/MODERATE PAIN (PS 1-7) Allergies Coded Allergies: No Known Drug Allergies (Verified Allergy, Unknown, 05/26/20) SHEY PATRICIA DO Jun 01, 2020 12:10
[2020-06-01 13:24] VITALS: BP 143/85
== END 2020-06-01 14:23 | disposition home or self-care (01) | DRG 540 ==
LOC: M LDO 13:33 → M LDI 13:35 → EDBD 13:35 → M OBS 05-27 05:04
PROVIDERS: ADMIT Advanced Practice Midwife; ATTEND Advanced Practice Midwife
PROC: 0UT70ZZ Resection of Bilateral Fallopian Tubes, Open Approach (ICD-10-PCS; 2020-05-26)
PROC: 0DNU0ZZ Release Omentum, Open Approach (ICD-10-PCS; 2020-05-26)
PROC: 10D00Z1 Extraction of Products of Conception, Low, Open Approach (ICD-10-PCS; principal; 2020-05-26 13:55)
PROC: 30233N1 Transfusion of Nonautologous Red Blood Cells into Peripheral Vein, Percutaneous Approach (ICD-10-PCS; 2020-05-30)
DX: O32.1XX0 Maternal care for breech presentation, not applicable or unspecified (principal); O24.12 Pre-existing type 2 diabetes mellitus, in childbirth; O71.1 Rupture of uterus during labor; Z37.0 Single live birth; Z3A.38 38 weeks gestation of pregnancy; O09.523 Supervision of elderly multigravida, third trimester; O34.211 Maternal care for low transverse scar from previous cesarean delivery; O11.4 Pre-existing hypertension with pre-eclampsia, complicating childbirth; Z30.2 Encounter for sterilization; N99.4 Postprocedural pelvic peritoneal adhesions; E11.9 Type 2 diabetes mellitus without complications

== ENCOUNTER 2021-06-12 19:08 | Emergency (ER) | payer OTHER, SELFPAY ==
[~2021-06-12] VITALS: Ht 172.7 cm; Wt 100.0 kg
[~2021-06-12 19:08] MED LIST: ASPI81CH33 PO; DOK1CAP4 PO; HYDR50TA PO; LABE100T4 PO; LABE200T32 PO; MAGN400C2 PO; METF500T13 PO; NIFE1TAB52 PO; PERCOCET PO; PRENTAB9 PO; SERT25TA21 PO
[2021-06-12] MEDS ORDERED: ONDANSETRON 4MG/2ML VIAL IV ONE (20:35)
[2021-06-12] MEDS ORDERED: NS 1,000 ML IV ONE (20:35)
[2021-06-12] MEDS ORDERED: ACETAMINOPHEN 325 MG TAB PO ONE (20:35)
[2021-06-12 21:28] LABS: BASO % 0.3 % (0.0-1.0); EOS % 0.4 % (0.0-3.0); HEMATOCRIT 29.4 % (36.0-47.0); HEMOGLOBIN 8.1 g/dl (12.0-15.5); LYMPH % 42.7 % (24.0-44.0); MEAN CORPUSCULAR HEMOGLOBIN 18.8 pg (27.0-33.0); MEAN CORPUSCULAR HGB CONC 27.6 g/dl (32.0-36.5); MEAN CORPUSCULAR VOLUME 68.2 fl (80.0-96.0); MONO # 0.4 10^3/uL (0.0-0.8); MONO % 6.3 % (2.0-8.0); NEUTROPHILS # 3.5 10^3/uL (1.5-8.5); NEUTROPHILS % 50.2 % (36.0-66.0); PLATELET COUNT, AUTOMATED 549 10^3/uL (150-450); RED BLOOD COUNT 4.31 10^6/uL (4.00-5.40)
[2021-06-12] MEDS ORDERED: AUGM875T28 PO (22:17)
[2021-06-12] MEDS ORDERED: KETOROLAC 30 MG/ML 1ML VIAL IV ONE (22:20)
[2021-06-12 22:58] VITALS: BP 150/72
== END 2021-06-12 23:02 | disposition home or self-care (01) ==
LOC: M ED 19:08
DX: U07.1 COVID-19 (principal); J01.90 Acute sinusitis, unspecified
CPT/HCPCS: 70450; 80047; 84702; 85025; 96361; 96374; 96375; 99284; J1885; J2405

== ENCOUNTER → 2023-05-20 | Outpatient (REF) | payer OTHER ==
[~2023-05-20] MED LIST changes: +AUGM875T28 PO; -LABE100T4 PO; +LABE100T6 PO; -LABE200T32 PO; +LABE200T5 PO
[2023-05-20 18:15] LABS: APPEARANCE, URINE HAZY (CLEAR); BACTERIA, URINE AUTO NEGATIVE (NEGATIVE); BILIRUBIN, URINE AUTO NEGATIVE (NEGATIVE); BLOOD, URINE BLOOD NEGATIVE (NEGATIVE); COLOR, URINE YELLOW (YELLOW); GLUCOSE, URINE (UA) AUTO NEGATIVE (NEGATIVE); KETONE, URINE AUTO NEGATIVE (NEGATIVE); LEUKOCYTE ESTERASE, URINE AUTO NEGATIVE (NEGATIVE); MUCUS, URINE SMALL (NEGATIVE); NITRITE, URINE AUTO NEGATIVE (NEGATIVE); PROTEIN, URINE AUTO NEGATIVE (NEGATIVE); RBC, URINE AUTO 0 /HPF (0-3); SPECIFIC GRAVITY URINE AUTO 1.029 (1.002-1.035); SQUAMOUS EPITHELIAL CELL UR AU 10 /HPF (0-6); UROBILINOGEN, URINE AUTO 0.2 mg/dL (0.0-2.0); WBC, URINE AUTO 2 /HPF (0-3)
== END ==
LOC: M LAB REF 16:30
PROVIDERS: ATTEND Physician Assistant
DX: N39.0 Urinary tract infection, site not specified (principal)

== ENCOUNTER 2023-06-20 11:48 | Inpatient (IN) | payer OTHER ==
[~2023-06-20] VITALS: Ht 172.7 cm; Wt 103.5 kg
[~2023-06-20 11:48] MED LIST changes: -HYDR50TA PO; +HYDR50TA47 PO
[2023-06-20] MEDS ORDERED: ACET-683 PO (12:59)
[2023-06-20 13:55] LABS: BASO % 0.6 % (0.0-1.0); EOS % 0.6 % (0.0-3.0); HEMATOCRIT 25.4 % (36.0-47.0); LYMPH # 2.1 10^3/uL (1.5-5.0); MEAN CORPUSCULAR HEMOGLOBIN 15.9 pg (27.0-33.0); MEAN CORPUSCULAR HGB CONC 24.8 g/dl (32.0-36.5); MONO # 0.5 10^3/uL (0.0-0.8); MONO % 7.3 % (2.0-8.0); NEUTROPHILS # 4.3 10^3/uL (1.5-8.5); NEUTROPHILS % 61.2 % (36.0-66.0); PLATELET COUNT, AUTOMATED 895 10^3/uL (150-450); RED BLOOD COUNT 3.97 10^6/uL (4.00-5.40)
[2023-06-20 13:57] LABS: HEMOGLOBIN 6.3 g/dl (12.0-15.5)
[2023-06-20 13:59] LABS: INR 1.12; PARTIAL THROMBOPLASTIN TIME 28.6 SECONDS (24.8-34.2); PROTHROMBIN TIME 14.1 SECONDS (12.5-14.5)
[2023-06-20 14:12] LABS: LIPASE 26 U/L (12-53)
[2023-06-20 14:14] LABS: CPK CREATINE PHOSPHOKINASE 139 U/L (34-145)
[2023-06-20 14:15] LABS: ALBUMIN 3.5 G/DL (3.2-5.2); ALKALINE PHOSPHATASE 91 U/L (46-116); ALT/SGPT 21 U/L (7.0-40); AST/SGOT 16 U/L (<34); BILIRUBIN,DIRECT 0.1 MG/DL (<0.4); BILIRUBIN,TOTAL 0.4 MG/DL (0.3-1.2); BLOOD UREA NITROGEN 8 MG/DL (9-23); CARBON DIOXIDE LEVEL 24 MMOL/L (20-31); CHLORIDE LEVEL 104 MMOL/L (98-107); CK-MB VALUE MASS < 1.0 NG/ML (<3.6); CREATININE FOR GFR 0.51 MG/DL (0.55-1.30); GLOMERULAR FILTRATION RATE > 60.0 (>60); GLUCOSE, FASTING 112 MG/DL (60-100); MB/CK RELATIVE INDEX 0.71 (< OR =4); POTASSIUM SERUM 4.3 MMOL/L (3.5-5.1); SODIUM LEVEL 134 MMOL/L (136-145); THYROID STIMULATING HORMONE 1.306 uIU/ML (0.55-4.78)
[2023-06-20 14:16] LABS: FREE T4 1.11 NG/DL (0.89-1.76)
[2023-06-20 14:28] LABS: HCG, SERUM QUALITATIVE NEGATIVE (NEGATIVE)
[2023-06-20 14:38] LABS: CK-MB VALUE MASS < 1.0 NG/ML (<3.6); CPK CREATINE PHOSPHOKINASE 130 U/L (34-145); MB/CK RELATIVE INDEX 0.76 (< OR =4)
[2023-06-20 14:41] LABS: RSV AMPLIFICATION NEGATIVE (NEGATIVE)
[2023-06-20] MEDS ORDERED: ISOVUE-370 76% 100ML VIAL As Ordered ONE (15:13)
[2023-06-20] MEDS ORDERED: LABETALOL 100MG/20ML VIAL IV STA (15:16)
[2023-06-20 15:26] LABS: BASO # 0.1 10^3/uL (0.0-0.2); BASO % 0.7 % (0.0-1.0); EOS % 0.4 % (0.0-3.0); HEMATOCRIT 25.2 % (36.0-47.0); LYMPH # 2.5 10^3/uL (1.5-5.0); LYMPH % 34.3 % (24.0-44.0); MEAN CORPUSCULAR HEMOGLOBIN 16.2 pg (27.0-33.0); MEAN CORPUSCULAR HGB CONC 25.4 g/dl (32.0-36.5); MEAN CORPUSCULAR VOLUME 63.6 fl (80.0-96.0); MONO # 0.6 10^3/uL (0.0-0.8); MONO % 7.7 % (2.0-8.0); NEUTROPHILS # 4.1 10^3/uL (1.5-8.5); NEUTROPHILS % 56.8 % (36.0-66.0); PLATELET COUNT, AUTOMATED 894 10^3/uL (150-450); RED BLOOD COUNT 3.96 10^6/uL (4.00-5.40); WHITE BLOOD COUNT 7.3 10^3/uL (4.0-10.0)
[2023-06-20 15:30] LABS: HEMOGLOBIN 6.4 g/dl (12.0-15.5)
[2023-06-20 16:45] VITALS: BP 179/88; TEMP 98.9; O2SAT 99
[2023-06-20] MEDS ORDERED: HOME MED LIST COMPLETE! XX SCH (16:55)
[2023-06-20 17:00] VITALS: BP 165/77; TEMP 98.9; O2SAT 99
[2023-06-20 17:58] LABS: CHOLESTEROL LEVEL 171 MG/DL (<200); CHOLESTEROL RISK RATIO 5.11 (<5); HDL CHOLESTEROL 33.4 MG/DL (>40); MAGNESIUM LEVEL 1.8 MG/DL (1.8-2.4); NON-HDL-C 137.6 MG/DL; TRIGLYCERIDES LEVEL 83 MG/DL (<150)
[2023-06-20 18:00] VITALS: BP 178/108; TEMP 98.4; O2SAT 98
[2023-06-20] MEDS: **hydrALAZINE** 10 MG TAB PO SCH (18:21)
[2023-06-20 19:45] VITALS: BP 184/79; TEMP 99.1; O2SAT 99
[2023-06-20 20:00] VITALS: BP 172/78; TEMP 99.1; O2SAT 99
[2023-06-20] MEDS: **hydrALAZINE HCL** 25 MG TAB PO SCH (20:59)
[2023-06-20 22:15] VITALS: BP 180/90; TEMP 98.8
[2023-06-20] MEDS: hydroCHLOROthiazide 12.5 MG CAPSULE PO ONE (22:42)
[2023-06-21 00:55] LABS: HEMATOCRIT 31.9 % (36.0-47.0); HEMOGLOBIN 8.7 g/dl (12.0-15.5)
[2023-06-21 01:19] LABS: ANISOCYTOSIS 2+; POLYCHROMASIA 1+
[2023-06-21 01:20] LABS: OVALOCYTES 1+
[2023-06-21 01:22] LABS: MICROCYTOSIS 2+
[2023-06-21 01:23] LABS: HYPOCHROMASIA 2+
[2023-06-21 01:25] LABS: PLATELET ESTIMATE INCREASED (NORMAL)
[2023-06-21 01:29] VITALS: BP 158/96; TEMP 97.7; O2SAT 98
[2023-06-21] MEDS: ACETAMINOPHEN TAB 650MG DOSE (2X325MG) PO PRN (03:06)
[2023-06-21 06:02] VITALS: BP 147/69; TEMP 97.9; O2SAT 98
[2023-06-21 06:07] LABS: BASO # 0.1 10^3/uL (0.0-0.2); BASO % 0.5 % (0.0-1.0); EOS # 0.1 10^3/uL (0.0-0.5); EOS % 0.7 % (0.0-3.0); HEMATOCRIT 29.8 % (36.0-47.0); HEMOGLOBIN 8.3 g/dl (12.0-15.5); LYMPH # 2.9 10^3/uL (1.5-5.0); LYMPH % 31.1 % (24.0-44.0); MEAN CORPUSCULAR HEMOGLOBIN 18.7 pg (27.0-33.0); MEAN CORPUSCULAR HGB CONC 27.9 g/dl (32.0-36.5); MEAN CORPUSCULAR VOLUME 67.1 fl (80.0-96.0); MONO # 0.6 10^3/uL (0.0-0.8); NEUTROPHILS # 5.6 10^3/uL (1.5-8.5); NEUTROPHILS % 60.5 % (36.0-66.0); PLATELET COUNT, AUTOMATED 847 10^3/uL (150-450); RED BLOOD COUNT 4.44 10^6/uL (4.00-5.40); WHITE BLOOD COUNT 9.2 10^3/uL (4.0-10.0)
[2023-06-21 07:13] LABS: PERCENT SATURATION 5.8 % (13.2-45.0)
[2023-06-21] MEDS: hydroCHLOROthiazide 12.5 MG CAPSULE PO SCH (08:48)
[2023-06-21 10:40] LABS: HEMATOCRIT 32.6 % (36.0-47.0)
[2023-06-21 11:55] VITALS: BP 143/73; TEMP 97.9; O2SAT 98
[2023-06-21] MEDS: FERRIC CARBOXYMALTOSE INJ 750 MG, VIAL MATE ADAPTER 1 EACH in NS 250 ML IV ONE (11:59)
[2023-06-21] MEDS: INFLUENZA QUADRIVALENT PF VACCINE 0.5ML SYRINGE IM.IMMUN ONE (12:00)
[2023-06-21 13:21] VITALS: BP 166/97; TEMP 97.7; O2SAT 99
[2023-06-21 13:29] VITALS: BP 166/97
[2023-06-21] MEDS ORDERED: HYDR25TA PO (15:35)
[2023-06-21] MEDS ORDERED: AMLO1TAB25 PO (15:35)
[2023-06-21] MEDS ORDERED: FERR325T3 PO (15:38)
[2023-06-21 15:40] VITALS: BP 131/75; TEMP 97.7; O2SAT 100
== END 2023-06-21 16:56 | disposition home or self-care (01) | DRG 199 ==
LOC: M ED 11:48 → M ED INP 17:07 → M MSPAV 06-21 01:25
PROVIDERS: ADMIT Student in an Organized Health Care Education/Training Program; ATTEND Student in an Organized Health Care Education/Training Program
PROC: 30233N1 Transfusion of Nonautologous Red Blood Cells into Peripheral Vein, Percutaneous Approach (ICD-10-PCS; principal; 2023-06-20)
DX: I16.0 Hypertensive urgency (principal); D50.9 Iron deficiency anemia, unspecified; N60.32 Fibrosclerosis of left breast; D69.6 Thrombocytopenia, unspecified

== ENCOUNTER → 2023-06-22 | Outpatient (REF) ==
[~2023-06-22] MED LIST changes: +ACET-683 PO; +AMLO1TAB25 PO; +FERR325T3 PO; +HYDR25TA PO
[2023-06-24 07:08] LABS: HERPES ZOSTER, VARICELLA IgG 2587 index (Immune >165); RUBEOLA IgG ANTIBODY >300.0 AU/mL (Immune >16.4)
== END ==
LOC: M LAB 14:00
PROVIDERS: ATTEND Family Medicine
DX: Z02.1 Encounter for pre-employment examination (principal)

== ENCOUNTER 2023-08-29 21:08 | Emergency (ER) | payer OTHER ==
[~2023-08-29] VITALS: Ht 172.7 cm; Wt 107.0 kg
[~2023-08-29 21:08] MED LIST changes: -HYDR25TA PO; +HYDR25TA88 PO
[2023-08-30 04:04] VITALS: BP 179/81; TEMP 97.2; O2SAT 100
[2023-08-30] MEDS ORDERED: IBUP80TA PO (06:42)
== END 2023-08-30 06:58 | disposition home or self-care (01) ==
LOC: M ED 21:08
DX: S70.12XA Contusion of left thigh, initial encounter (principal); W19.XXXA Unspecified fall, initial encounter; I10 Essential (primary) hypertension; Y92.009 Unspecified place in unspecified non-institutional (private) residence as the place of occurrence of the external cause; Y93.89 Activity, other specified; Y99.9 Unspecified external cause status; Z79.899 Other long term (current) drug therapy; Z79.1 Long term (current) use of non-steroidal anti-inflammatories (NSAID); Z79.52 Long term (current) use of systemic steroids

== ENCOUNTER 2023-09-15 13:51 | Emergency (ER) | payer OTHER, SELFPAY ==
[~2023-09-15] VITALS: Ht 172.7 cm; Wt 106.5 kg
[~2023-09-15 13:51] MED LIST changes: +IBUP80TA PO
[2023-09-15] MEDS: NS 500 ML IV ONE (16:28)
[2023-09-15] MEDS: dexAMETHasone 20MG/5ML VIAL IV ONE (16:28)
[2023-09-15] MEDS: AMPICILLIN SOD/SULBACTAM SOD 3 GM in D5W MINI-BAG PLUS 100 ML IV ONE (16:29)
[2023-09-15] MEDS: KETOROLAC 30 MG/ML 1ML VIAL IV ONE (16:29)
[2023-09-15 16:31] LABS: BASO % 0.4 % (0.0-1.0); EOS # 0.1 10^3/uL (0.0-0.5); EOS % 0.7 % (0.0-3.0); HEMATOCRIT 30.8 % (36.0-47.0); HEMOGLOBIN 9.4 g/dl (12.0-15.5); LYMPH # 2.9 10^3/uL (1.5-5.0); MEAN CORPUSCULAR HEMOGLOBIN 21.9 pg (27.0-33.0); MEAN CORPUSCULAR HGB CONC 30.5 g/dl (32.0-36.5); MEAN CORPUSCULAR VOLUME 71.8 fl (80.0-96.0); MONO # 0.5 10^3/uL (0.0-0.8); MONO % 5.9 % (2.0-8.0); NEUTROPHILS # 5.5 10^3/uL (1.5-8.5); NEUTROPHILS % 60.8 % (36.0-66.0); PLATELET COUNT, AUTOMATED 388 10^3/uL (150-450); RED BLOOD COUNT 4.29 10^6/uL (4.00-5.40)
[2023-09-15 16:42] LABS: ERYTHROCYTE SEDIMENTATION RATE 55 mm/hr (0-20)
[2023-09-15] MEDS ORDERED: ISOVUE-370 76% 100ML VIAL As Ordered ONE (16:59)
[2023-09-15] MEDS ORDERED: AMOX500C PO (17:48)
[2023-09-15 18:29] VITALS: BP 166/84; TEMP 97.1; O2SAT 100
== END 2023-09-15 18:41 | disposition home or self-care (01) ==
LOC: M ED 13:51
DX: K04.7 Periapical abscess without sinus (principal); K08.89 Other specified disorders of teeth and supporting structures; Z79.2 Long term (current) use of antibiotics; Z79.1 Long term (current) use of non-steroidal anti-inflammatories (NSAID); Z79.52 Long term (current) use of systemic steroids; Z79.899 Other long term (current) drug therapy
CPT/HCPCS: 70487; 80047; 84702; 85025; 85652; 86140; 93005; 96365; 96375; 99284; J0295; J1100; J1885; Q9967

== ENCOUNTER 2023-09-17 05:11 | Emergency (ER) | payer SELFPAY ==
[~2023-09-17] VITALS: Ht 172.7 cm; Wt 107.8 kg
[~2023-09-17 05:11] MED LIST changes: +AMOX500C PO
[2023-09-17] MEDS: AMPICILLIN SOD/SULBACTAM SOD 3 GM in D5W MINI-BAG PLUS 100 ML IV ONE (07:10)
[2023-09-17] MEDS: KETOROLAC 30 MG/ML 1ML VIAL IV ONE (07:10)
[2023-09-17 07:31] LABS: HEMATOCRIT 29.4 % (36.0-47.0); HEMOGLOBIN 8.9 g/dl (12.0-15.5); MEAN CORPUSCULAR HEMOGLOBIN 22.1 pg (27.0-33.0); MEAN CORPUSCULAR HGB CONC 30.3 g/dl (32.0-36.5); PLATELET COUNT, AUTOMATED 368 10^3/uL (150-450); RED BLOOD COUNT 4.03 10^6/uL (4.00-5.40); WHITE BLOOD COUNT 13.4 10^3/uL (4.0-10.0)
[2023-09-17 07:36] LABS: ERYTHROCYTE SEDIMENTATION RATE 46 mm/hr (0-20)
[2023-09-17 07:49] LABS: ATYPICAL LYMPH 1 % (0-5); LYMPHOCYTES 31 % (16-44); NEUTROPHILS 68 % (28-66)
[2023-09-17 07:50] LABS: ANISOCYTOSIS 1+; HYPOCHROMASIA 1+; MICROCYTOSIS 2+
[2023-09-17 07:51] LABS: OVALOCYTES 1+; PLATELET ESTIMATE NORMAL (NORMAL)
[2023-09-17 07:52] LABS: POLYCHROMASIA 1+
[2023-09-17 07:53] LABS: PLATELET CLUMPS SMALL AMT
[2023-09-17 07:55] LABS: BLOOD UREA NITROGEN 11 MG/DL (9-23); CALCIUM LEVEL 8.1 MG/DL (8.5-10.1); CARBON DIOXIDE LEVEL 26 MMOL/L (20-31); CHLORIDE LEVEL 104 MMOL/L (98-107); CREATININE FOR GFR 0.57 MG/DL (0.55-1.30); GLOMERULAR FILTRATION RATE > 60.0 (>60); GLUCOSE, FASTING 143 MG/DL (60-100); POTASSIUM SERUM 3.5 MMOL/L (3.5-5.1); SODIUM LEVEL 139 MMOL/L (136-145)
[2023-09-17] MEDS ORDERED: AMOX875T2 PO (09:28)
[2023-09-17] MEDS ORDERED: PERI0.126 PO (09:28)
[2023-09-17] MEDS ORDERED: ACET325C5 PO (09:28)
[2023-09-17] MEDS: ACETAMINOPHEN TAB 650MG DOSE (2X325MG) PO ONE (09:30)
[2023-09-17 09:32] VITALS: BP 158/72; TEMP 97.6; O2SAT 100
== END 2023-09-17 09:38 | disposition home or self-care (01) ==
LOC: M ED 05:11
DX: K04.7 Periapical abscess without sinus (principal); K08.89 Other specified disorders of teeth and supporting structures; K02.9 Dental caries, unspecified; E11.9 Type 2 diabetes mellitus without complications; I10 Essential (primary) hypertension; Z79.2 Long term (current) use of antibiotics; Z79.1 Long term (current) use of non-steroidal anti-inflammatories (NSAID); Z79.52 Long term (current) use of systemic steroids; Z79.899 Other long term (current) drug therapy
CPT/HCPCS: 80048; 85025; 85652; 86140; 96365; 96375; 99284; J0295; J1885

== ENCOUNTER 2023-10-17 10:43 | Emergency (ER) | payer OTHER ==
[~2023-10-17] VITALS: Ht 172.7 cm; Wt 104.9 kg
[~2023-10-17 10:43] MED LIST changes: +ACET325C5 PO; +AMOX875T2 PO; +PERI0.126 PO
[2023-10-17 13:40] LABS: BASO % 0.5 % (0.0-1.0); EOS % 0.5 % (0.0-3.0); HEMATOCRIT 32.1 % (36.0-47.0); HEMOGLOBIN 9.3 g/dl (12.0-15.5); LYMPH # 2.6 10^3/uL (1.5-5.0); LYMPH % 31.3 % (24.0-44.0); MEAN CORPUSCULAR VOLUME 72.6 fl (80.0-96.0); MONO # 0.6 10^3/uL (0.0-0.8); MONO % 7.2 % (2.0-8.0); NEUTROPHILS # 5.1 10^3/uL (1.5-8.5); NEUTROPHILS % 60.3 % (36.0-66.0); PLATELET COUNT, AUTOMATED 503 10^3/uL (150-450); RED BLOOD COUNT 4.42 10^6/uL (4.00-5.40); WHITE BLOOD COUNT 8.4 10^3/uL (4.0-10.0)
[2023-10-17 14:09] LABS: BLOOD UREA NITROGEN 7 MG/DL (9-23); CALCIUM LEVEL 9.2 MG/DL (8.5-10.1); CARBON DIOXIDE LEVEL 26 MMOL/L (20-31); CHLORIDE LEVEL 106 MMOL/L (98-107); CREATININE FOR GFR 0.71 MG/DL (0.55-1.30); GLOMERULAR FILTRATION RATE > 60.0 (>60); GLUCOSE, FASTING 141 MG/DL (60-100); POTASSIUM SERUM 3.8 MMOL/L (3.5-5.1); SODIUM LEVEL 139 MMOL/L (136-145)
[2023-10-17 14:33] LABS: HCG, SERUM QUALITATIVE NEGATIVE (NEGATIVE)
[2023-10-17] MEDS: KETOROLAC 60MG 2ML VIAL IM ONE (19:33)
[2023-10-17 19:37] VITALS: BP 193/98; TEMP 97.1; O2SAT 99
[2023-10-17] MEDS ORDERED: KETO10TAB PO (19:52)
[2023-10-17] MEDS ORDERED: PROV10TA PO (19:52)
[2023-10-17] MEDS: TRANEXAMIC ACID 650MG TABLET (LYSTEDA) PO ONE (19:56)
== END 2023-10-17 20:04 | disposition home or self-care (01) ==
LOC: M ED 10:43
DX: N93.9 Abnormal uterine and vaginal bleeding, unspecified (principal); R10.2 Pelvic and perineal pain; E11.9 Type 2 diabetes mellitus without complications; I10 Essential (primary) hypertension; Z79.811 Long term (current) use of aromatase inhibitors; Z79.899 Other long term (current) drug therapy; Z79.2 Long term (current) use of antibiotics; Z79.1 Long term (current) use of non-steroidal anti-inflammatories (NSAID)
CPT/HCPCS: 76830; 76856; 80048; 84703; 85025; 86850; 86900; 86901; 96372; 99284; J1885

== ENCOUNTER → 2023-11-30 | Outpatient (REF) | payer OTHER ==
[~2023-11-30] MED LIST changes: +KETO10TAB PO; +PROV10TA PO
[2023-11-30 14:14] LABS: Trichomonas vaginalis (AMP) POSITIVE (NEGATIVE)
[2023-11-30 14:38] LABS: GC DNA AMPLIFICATION NEGATIVE (NEGATIVE)
== END ==
LOC: M LAB REF 12:20
PROVIDERS: ATTEND Physician Assistant Medical
DX: Z20.2 Contact with and (suspected) exposure to infections with a predominantly sexual mode of transmission (principal)

== ENCOUNTER → 2024-04-10 | Outpatient (CLI) | payer OTHER | LOC: M RAD 10:48 | PROVIDERS: ATTEND Physician Assistant Medical | DX: M79.672 Pain in left foot (principal); S92.025A Nondisplaced fracture of anterior process of left calcaneus, initial encounter for closed fracture ==

== ENCOUNTER 2024-04-11 14:42 | Emergency (ER) | payer OTHER ==
[~2024-04-11] VITALS: Ht 172.7 cm; Wt 105.9 kg
[2024-04-11 16:47] VITALS: BP 174/86; TEMP 97.7; O2SAT 100
[2024-04-11] MEDS ORDERED: IBUP80TA PO (18:44)
== END 2024-04-11 19:00 | disposition home or self-care (01) ==
LOC: M ED 14:42
DX: S92.022A Displaced fracture of anterior process of left calcaneus, initial encounter for closed fracture (principal); X58.XXXA Exposure to other specified factors, initial encounter; M77.32 Calcaneal spur, left foot; I10 Essential (primary) hypertension; Z79.1 Long term (current) use of non-steroidal anti-inflammatories (NSAID); Z79.899 Other long term (current) drug therapy; Y92.9 Unspecified place or not applicable; Y93.9 Activity, unspecified; Y99.9 Unspecified external cause status

== ENCOUNTER → 2024-04-23 | Outpatient (REF) | LOC: M LAB 08:04 | PROVIDERS: ATTEND Pathology Forensic Pathology | DX: Z02.79 Encounter for issue of other medical certificate (principal) ==